=== PATIENT | male | born 1960 | race Caucasian/White ===

== ENCOUNTER 2018-08-19 13:47 | Observation (INO) | payer OTHER, MEDICARE, MEDICAID ==
[~2018-08-19] VITALS: Ht 185.4 cm; Wt 76.8 kg
[~2018-08-19 13:47] MED LIST: OMNIPAQUE 350 MG/ML, 100ML BOTTLE ONE
[2018-08-19] MEDS ORDERED: SODIUM CHLORIDE FLUSH 10ML SYR IVF ONE (14:00)
[2018-08-19] MEDS ORDERED: FENTANYL PF 100 MCG/2ML IV ONE (14:00)
[2018-08-19] MEDS ORDERED: PLEASE ENTER ALLERGIES MC SCH (14:30)
[2018-08-19 14:47] LABS: BASOPHILS # (AUTO) 0.01 x10^3/uL (0-0.1); BASOPHILS % (AUTO) 0 % (0-1); CHLORIDE 104 mmol/L (98-107); EOSINOPHILS # (AUTO) 0.09 x10^3/uL (0-0.4); EOSINOPHILS % (AUTO) 2 % (1-7); LYMPHOCYTES % (AUTO) 26 % (22-44); MD NO; MEAN CORPUSCULAR HEMOGLOBIN 33.3 pg (27.5-34.5); MEAN CORPUSCULAR HGB CONC 34.6 g/dL (33.2-36.2); MEAN CORPUSCULAR VOLUME 96.1 fL (81-97); MEAN PLATELET VOLUME 10.4 fL (7.4-10.4); MONOCYTES % (AUTO) 10 % (2-9); NEUTROPHILS # (AUTO) 3.07 x10^3/uL (1.8-6.8); NEUTROPHILS % (AUTO) 62 % (42-75); PLATELET COUNT 151 x10^3/uL (130-400); RED BLOOD COUNT 3.83 x10^6/uL (4.38-5.82); RED CELL DISTRIBUTION WIDTH 13.3 % (9.4-14.8)
[2018-08-19] MEDS ORDERED: FENTANYL PF 100 MCG/2ML ONE (14:48)
[2018-08-19 14:52] LABS: ALBUMIN 3.7 g/dL (3.4-5.0); ANION GAP 5 mmol/L (5-15); CALCIUM 8.2 mg/dL (8.5-10.1)
[2018-08-19 14:57] LABS: ALANINE AMINOTRANSFERASE 18 U/L (12-78); ALKALINE PHOSPHATASE 47 U/L (45-117); BILIRUBIN,TOTAL 0.6 mg/dL (0.2-1.0); CREATININE 1.01 mg/dL (0.7-1.3); TOTAL PROTEIN 6.2 g/dL (6.4-8.2); TROPONIN I < 0.015 ng/mL (0.000-0.045)
[2018-08-19 14:58] LABS: INTERNATIONAL NORMALIZED RATIO 1.07 (0.93-1.1); PROTHROMBIN TIME 11.3 Seconds (9.6-11.5)
[2018-08-19] MEDS ORDERED: ACETAMINOPHEN 325 MG TABLET PO PRN (17:00)
[2018-08-19] MEDS ORDERED: ASPIRIN 81 MG TABLET CHEW ONE (17:02)
[2018-08-19] MEDS ORDERED: ASPIRIN 81 MG TABLET CHEW PO ONE (17:30)
[2018-08-19 17:35] VITALS: BP 136/82
[2018-08-19] MEDS: ENOXAPARIN 40 MG/0.4 ML SQ SCH (17:43)
[2018-08-19] MEDS: KETOROLAC 30 MG/1 ML IM PRN (17:43)
[2018-08-19] MEDS: LACTATED RINGERS 1,000 ML IV SCH (17:45)
[2018-08-19] MEDS ORDERED: ALBUTEROL/IPRATROPIUM 2.5MG/0.5MG, 3 ML IPPB PRN (19:30)
[2018-08-19 19:58] LABS: TROPONIN I < 0.015 ng/mL (0.000-0.045)
[2018-08-19 20:00] VITALS: BP 100/59
[2018-08-19] MEDS: FAMOTIDINE 20 MG TABLET PO SCH (21:48)
[2018-08-19] MEDS ORDERED: ALBUTEROL/IPRATROPIUM 2.5MG/0.5MG, 3 ML NPPB SCH (23:00)
[2018-08-20] MEDS: KETOROLAC 30 MG/1 ML IM PRN ×3 (00:27→22:47)
[2018-08-20 01:08] LABS: BASOPHILS # (AUTO) 0.02 x10^3/uL (0-0.1); BASOPHILS % (AUTO) 0 % (0-1); EOSINOPHILS # (AUTO) 0.13 x10^3/uL (0-0.4); EOSINOPHILS % (AUTO) 3 % (1-7); LYMPHOCYTES # (AUTO) 2.23 x10^3/uL (1-3.4); LYMPHOCYTES % (AUTO) 49 % (22-44); MD NO; MEAN CORPUSCULAR HEMOGLOBIN 31.7 pg (27.5-34.5); MEAN CORPUSCULAR HGB CONC 33.2 g/dL (33.2-36.2); MEAN CORPUSCULAR VOLUME 95.7 fL (81-97); MONOCYTES # (AUTO) 0.39 x10^3/uL (0.2-0.8); MONOCYTES % (AUTO) 9 % (2-9); NEUTROPHILS # (AUTO) 1.82 x10^3/uL (1.8-6.8); NEUTROPHILS % (AUTO) 40 % (42-75); PLATELET COUNT 134 x10^3/uL (130-400); RED CELL DISTRIBUTION WIDTH 13.6 % (9.4-14.8)
[2018-08-20 01:18] LABS: ANION GAP 6 mmol/L (5-15); CALCIUM 8.1 mg/dL (8.5-10.1); CHLORIDE 107 mmol/L (98-107); CREATININE 0.97 mg/dL (0.7-1.3)
[2018-08-20 01:20] LABS: TROPONIN I < 0.015 ng/mL (0.000-0.045)
[2018-08-20 01:43] VITALS: BP 108/56
[2018-08-20 07:58] VITALS: BP 95/55
[2018-08-20] MEDS: FAMOTIDINE 20 MG TABLET PO SCH ×2 (08:30→21:29)
[2018-08-20 12:35] VITALS: BP 132/80
[2018-08-20] MEDS: LACTATED RINGERS 1,000 ML IV SCH (13:46)
[2018-08-20 14:29] LABS: THYROID STIMULATING HORMONE 5.1 mIU/L (0.358-3.740)
[2018-08-20 19:40] VITALS: BP 98/60
[2018-08-20] MEDS: ENOXAPARIN 40 MG/0.4 ML SQ SCH (19:50)
[2018-08-20 21:24] VITALS: BP 111/64
[2018-08-21 02:12] VITALS: BP 95/58
[2018-08-21 03:43] VITALS: BP 103/63
[2018-08-21] MEDS: FAMOTIDINE 20 MG TABLET PO SCH (08:04)
[2018-08-21] MEDS: KETOROLAC 30 MG/1 ML IM PRN (08:13)
[2018-08-21 09:54] VITALS: BP 130/81
[2018-08-21] MEDS ORDERED: REGADENOSON 0.4 MG/5 ML SYRINGE ONE (10:27)
[2018-08-21 14:20] VITALS: BP 131/78
== END 2018-08-21 17:57 ==
LOC: ED 15:01 → INTOOBSV 15:52 → EDIP 15:52 → 5SO 17:21
PROVIDERS: ADMIT Internal Medicine; ATTEND Internal Medicine
DX: R07.89 Other chest pain (principal); I10 Essential (primary) hypertension; I48.91 Unspecified atrial fibrillation; J44.9 Chronic obstructive pulmonary disease, unspecified; F15.10 Other stimulant abuse, uncomplicated; H54.8 Legal blindness, as defined in USA; R04.0 Epistaxis; Z87.891 Personal history of nicotine dependence
CPT/HCPCS: 0399T; 36415; 70450; 71045; 71101; 71275; 74175; 78452; 80048; 80053; 83690; 83735; 84443; 84484; 85025; 85610; 85730; 93005; 93017; 93306; 96372; 96374; 99284; A9502; C9898; G0378; J1650; J1885; J2785; J3010; J7120; Q9967